=== PATIENT | female | born 1975 | race Caucasian/White ===

== ENCOUNTER 2021-01-07 10:37 | Emergency (ER) | payer OTHER, SELFPAY ==
[2021-01-07 10:50] VITALS: BP 131/87; PULSE 95; RESP 20; TEMP 36.2; O2SAT 98
--- NOTE | 2021-01-07 10:51 | ED.FEMALEGU ---
HPI - Female Genitourinary General Chief complaint: Urogenital-Female Stated complaint: pain in pelvic area Time Seen by Provider: 01/07/21 10:51 Source: patient and RN notes reviewed History of Present Illness HPI Narrative: Patient is a 45-year-old female who presents the urgent care with complaints of a possible UTI due to pelvic discomfort. Patient states that she has had UTIs in the past but currently denies of any dysuria, urgency, frequency, blood in the urine. Patient states she has a little bit of low back discomfort. Reports the pain is crampy and achy intermittently . Denies of any recent strenuous activity or heavy lifting. Patient states that she does regularly see her [employer] and is currently on hormones to avoid periods. No other acute complaints. No acute distress noted. Denies of fever, chills, nausea, vomiting, abdominal pain. Patient aware of the plan of care. Some parts of this dictation were generated by voice recognition software and may contain typographical and/or grammatical inaccuracies. Related Data Home Medications Medication Instructions Recorded Confirmed norethindrone-e.estradiol-iron [Lo 1 tablet PO DAILY 01/07/21 01/07/21 Loestrin Fe] Allergies Allergy/AdvReac Type Severity Reaction Status Date / Time phenobarbital Allergy Unknown Unknown Verified 01/07/21 10:53 phenytoin Allergy Unknown Unknown Verified 01/07/21 10:53 Review of Systems Review of Systems: Narrative: CONSTITUTIONAL: Denies fever, chills, or sweats. EYES: Denies visual changes, redness, or discharge. ENT: Denies rhinorrhea, congestion, sore throat, or otalgia. CARDIOVASCULAR: Denies chest pain, palpitations, or edema. RESPIRATORY: Denies cough or dyspnea. GASTROINTESTINAL: Denies abdominal pain, nausea, vomiting, or diarrhea. GENITOURINARY: Reports of pelvic discomfort SKIN: Denies rash or itching. MUSCULOSKELETAL: Reports of mild low back pain NEUROLOGIC: Denies headache, numbness, or weakness. All other systems reviewed are negative, except as documented in HPI. [facility] Past Medical History Medical History (Updated 01/07/21 @ 11:05 by JOAQUIM Eastman) Appendicitis History of seizures MVP (mitral valve prolapse) Surgical History Surgical History (Updated 04/28/20 @ 10:28 by Nancy Castro MD) History of appendectomy Hx of tonsillectomy Family History Family History (Updated 04/28/20 @ 10:29 by Nancy Castro MD) Mother Diabetes mellitus Other Breast cancer Social History Social History (Updated 04/25/20 @ 11:12 by Ilene Anders) Smoking status: Never smoker Second hand tobacco smoke exposure: No Alcohol intake: current Substance use: never Substance use type: does not use Gender identity (if verbalized by the patient): Female Comments At the time of my signature, I reviewed and agree with the nursing past medical, surgical, social, and family history. There is no relevant family history pertinent to the patient complaint. Exam Narrative: Exam Narrative: GENERAL: This is a well-nourished, well-developed patient, in no apparent distress. HEAD: normocephalic, atraumatic. EYES: PERRL. Sclera clear/white. Vision is grossly intact. EARS: External ears normal NOSE: External nose normal with no obvious nasal discharge, nares without redness, no rhinorrhea. THROAT: Mucous membranes moist NECK: Neck supple GASTROINTESTINAL: Abdomen soft, mild suprapubic pressure/tenderness with palpation, nondistended. SKIN: warm, intact with no suspicious lesions or rash, good texture and turgor. NEURO: awake, alert, and oriented to person, place and time. There were no obvious focal neurologic abnormalities. EXTREMITIES: No clubbing, cyanosis, or edema. BACK: Mild bilateral CVA tenderness Course Vital Signs Vital signs: Vital Signs Temperature 97.2 F L 01/07/21 10:50 Pulse Rate 95 01/07/21 10:50 Respiratory Rate 20 01/07/21 10:50 Blood Pressure 131/8
== END 2021-01-07 11:10 | disposition home or self-care (01) ==
PROVIDERS: Emergency Provider Nurse Practitioner Family; PCP Family Medicine
DX: N39.0 Urinary tract infection, site not specified (principal); I34.1 Nonrheumatic mitral (valve) prolapse
CPT/HCPCS: 81003; 87086; 87088; 87147; 99213; G0463